=== PATIENT | female | born 1980 | race Caucasian/White ===

== ENCOUNTER 2023-05-16 13:47 | Emergency (ER) | payer MEDICAID ==
[~2023-05-16] VITALS: Ht 157.5 cm; Wt 81.6 kg
--- NOTE | 2023-05-16 14:12 | NUR ---
Placed in room 04 . Placed on cafeteria monitor, blood pressure machine and pulse oximeter. To gown for exam. Side rails up.
[2023-05-16 14:13] VITALS: BP_SYST 116
--- NOTE | 2023-05-16 14:40 | NUR ---
ER at bedside examining patient.
[2023-05-16] MEDS ORDERED: MORPHINE 2 MG/ML INJ. SYRINGE IVP ONE (15:15)
[2023-05-16] MEDS ORDERED: ONDANSETRON HCL 4 MG/2 ML VIAL IVP ONE (15:15)
--- NOTE | 2023-05-16 15:36 | NUR ---
PT BIB SELF WITH A C/O OF RIGHT SIDES FLANK PAIN 10/10. PT ALSO STATES THAT SHE HAS BEEN PROJECTILE VOMITING MULTIPLE TIMES THIS MORNING BP STABLE. PT IS GCS 15 EYES OPEN SPONTANEOUSLY, ORIENTED TO PERSON, PLACE, TIME, AND SITUATION, PT OBEYS COMMANDS. PT DENIES HEARING ISSUES. 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 PT SKIN IS WARM AND INTACT. PT PULSES +1. PT DENIES CHEST PAIN AND MONITOR SHOWS NSR. PT BREATHING IS UNLABORED AND NORMAL RR. PT ABDOMIN IS SOFT. PT IS IN ROOM 4 ON THE MONITOR WITH BOYFRIEND AT BEDSIDE.
--- NOTE | 2023-05-16 15:40 | NUR ---
PT IS COMPLAINING OF 9 OUT OF 10 PAIN ON THE RIGHT SIDE OF THE FLANK 2 MG MORPHINE GIVEN FOR PAIN AND 4 MG OF ZOFRAN GIVEN FOR NAUSEA. PER DR. CUI ORDERS. PT ON MONITOR .
[2023-05-16 15:43] LABS: HEMOGLOBIN 11.4 g/dL (12.0-16.0); MEAN CORPUSCULAR HEMOGLOBIN 29 pg (27-31); MEAN CORPUSCULAR HGB CONC 33 % (32-36); MEAN CORPUSCULAR VOLUME 87 fL (79.0-98.0); PLATELET COUNT (AUTO) 335 K/uL (130-430); RED BLOOD CELL COUNT(AUTO) 4.01 MIL/uL (4.2-6.2); RED CELL DISTRIBUTION WIDTH 13.2 % (9.0-15.0); WHITE BLOOD COUNT (AUTO) 20.6 K/uL (4.8-10.8)
[2023-05-16 15:56] LABS: ANION GAP 9 (5-15); CALCIUM 8.4 mg/dL (8.4-11.0); CHLORIDE 99 mmol/L (98-107); CREATININE 0.76 mg/dL (0.55-1.30); GFR AFRICAN AMERICAN 107 mL/min (>90); GLUCOSE 99 mg/dL (70-99); UREA NITROGEN, BLOOD 7 mg/dL (8-21)
[2023-05-16 16:03] LABS: BAND % (MANUAL) 6 % (0-6); LYMPHOCYTES % (MANUAL) 8 % (20-46)
[2023-05-16 16:04] LABS: BASOPHILS % (MANUAL) 0 % (0-2); EOSINOPHILS % (MANUAL) 0 % (0-7); MONOCYTES % (MANUAL) 4 % (0-11)
[2023-05-16 16:08] LABS: ALANINE AMINOTRANSFERASE 15 U/L (12-78); ALBUMIN 2.6 g/dL (3.4-4.8); AMYLASE 15 U/L (0-100); ASPARTATE AMINOTRANSFERASE 11 U/L (10-37); C-REACTIVE PROTEIN QUANT 9.2 mg/dL (0-0.5); LIPASE 30 U/L (73-393); TOTAL BILIRUBIN 0.5 mg/dL (0.0-1.0)
[2023-05-16] MEDS ORDERED: NACL 0.9% 1,000 ML IV ONE (16:15)
[2023-05-16 16:29] LABS: ACETONE, SERUM NEGATIVE (NEGATIVE)
[2023-05-16 16:30] LABS: BILIRUBIN,URINE NEGATIVE (NEGATIVE); BLOOD, URINE 2+ (NEGATIVE); COLOR,URINE YELLOW (YELLOW); GLUCOSE,URINE NEGATIVE (NEGATIVE); KETONES,URINE NEGATIVE (NEGATIVE); NITRITE, URINE NEGATIVE (NEGATIVE); PH,URINE 6.5 (5.0-8.0); PROTEIN URINE NEGATIVE (NEGATIVE)
[2023-05-16 16:39] LABS: CLARITY/URINE HAZY (CLEAR); LEUKOCYTE ESTERASE ,URINE 1+ (NEGATIVE)
--- NOTE | 2023-05-16 16:39 | NUR ---
[employer]uty [employer] Of [employer] called, authorized admit.
[2023-05-16 16:40] LABS: BACTERIA,URINE FEW /HPF (None Seen); MUCUS,URINE None Seen /LPF (None Seen); RBC,URINE 0-3 /HPF (0-3)
--- NOTE | 2023-05-16 16:41 | NUR ---
Paged Admitting doc. Dr. Dawkins
[2023-05-16] MEDS ORDERED: cefTRIAXone 1 GM in D5W 50 ML IV ONE (17:00)
[2023-05-16] MEDS ORDERED: OXYC-128 PO (17:02)
[2023-05-16] MEDS ORDERED: IBUP-1969 PO (17:02)
[2023-05-16] MEDS ORDERED: cefTRIAXone 1 GM VIAL ONE (17:03)
[2023-05-16 19:13] VITALS: BP_SYST 116
--- NOTE | 2023-05-16 19:14 | NUR ---
Patient given written and verbal discharge instructions and verbalizes understanding. ER MD discussed with patient the results and treatment provided. Patient in stable condition. ID arm band removed. IV catheter removed intact and dressing applied, no active bleeding. Rx of ibuprofen ssnd oxycodone given. Patient educated on pain management and to follow up with PMD. Pain Scale 3 out of 10 . Opportunity for questions provided and answered. Medication side effect fact sheet provided.
== END 2023-05-16 19:13 | disposition home or self-care (01) ==
LOC: SED 13:47
DX: D72.829 Elevated white blood cell count, unspecified (principal); M25.551 Pain in right hip; J45.909 Unspecified asthma, uncomplicated; Z79.899 Other long term (current) drug therapy
CPT/HCPCS: 99285; 96365; 71045; 96375; 96361; 85027; 80053; 81000; 82009; 82150; 84703; 83690; 85007; 86140; 87086; 36415; 73502; 74018; 83605; J0696; J2405; J2270; J7030

== ENCOUNTER 2023-07-10 17:36 | Emergency (ER) | payer MEDICAID ==
[~2023-07-10] VITALS: Ht 157.5 cm; Wt 72.6 kg
[2023-07-10 17:36] VITALS: BP_SYST 136; PULSE 88; RESP 18; TEMP 98.2; O2SAT 96
[~2023-07-10 17:36] MED LIST: IBUP-1969 PO; OXYC-128 PO
[2023-07-10] MEDS ORDERED: HYDROcodone/ACETAMIN 10-325 MG TAB PO ONE (19:15)
[2023-07-10] MEDS ORDERED: KETOROLAC TROMETHAMINE 30 MG VIAL IM ONE (19:45)
[2023-07-10] MEDS ORDERED: HYDR-3927 PO (20:10)
[2023-07-10 21:20] VITALS: BP_SYST 136; PULSE 88; RESP 18; TEMP 98.2; O2SAT 96
== END 2023-07-10 21:20 | disposition home or self-care (01) ==
LOC: SED 17:36
DX: S62.616A Displaced fracture of proximal phalanx of right little finger, initial encounter for closed fracture (principal); J45.909 Unspecified asthma, uncomplicated; Z79.899 Other long term (current) drug therapy; W22.8XXA Striking against or struck by other objects, initial encounter; Y93.89 Activity, other specified; Y92.89 Other specified places as the place of occurrence of the external cause; Y99.8 Other external cause status
CPT/HCPCS: 73140-TC; 99283; J1885

== ENCOUNTER 2023-09-19 15:08 | Emergency (ER) | payer MEDICAID ==
[~2023-09-19] VITALS: Ht 157.5 cm; Wt 77.1 kg
[~2023-09-19 15:08] MED LIST changes: +HYDR-3927 PO
[2023-09-19 15:29] VITALS: BP_SYST 147; PULSE 98; RESP 18; TEMP 97.8; O2SAT 99
[2023-09-19 16:20] VITALS: BP_SYST 140; PULSE 96; RESP 20; TEMP 97.4; O2SAT 97
== END 2023-09-19 16:57 | disposition left against medical advice (07) ==
LOC: SED 15:08
DX: G89.18 Other acute postprocedural pain (principal); R10.9 Unspecified abdominal pain; Z76.0 Encounter for issue of repeat prescription; J45.909 Unspecified asthma, uncomplicated; Z79.899 Other long term (current) drug therapy
CPT/HCPCS: 99281